=== PATIENT | male | born 1955 | race Caucasian/White ===

== ENCOUNTER 2017-11-20 17:14 | Emergency (ER) | payer MEDICARE ==
--- NOTE | 2017-11-20 18:02 | ER Document Report ---
ED General - General Chief Complaint: Other Stated Complaint: BLOOD CONCERN Time Seen by Provider: 11/20/17 17:52 Mode of Arrival: Ambulatory Information source: Patient, Relative Notes: 62-year-old male with a history of hypertension, CAD, aortic valve replacement in 2017 presents with request of an INR check. Patient is new to the area and has not been able to establish primary care as of yet. Patient is taking 3 mg grams of Coumadin daily. He states he is otherwise well. He denies any chest pain, shortness of breath, fever, chills, nausea, vomiting. Prior to moving he did have an elevated INR and was advised to cut back on his dosing. He does not know what his INR was. And now wants to make sure if he needs to stay on 3 mg or increase back to 4 mg. TRAVEL OUTSIDE OF THE [place] IN LAST 30 DAYS: No - HPI Quality of pain: No pain Associated symptoms: None Exacerbated by: Denies Relieved by: Denies - Related Data Allergies/Adverse Reactions: Unable to Assess Allergy (Unverified 11/20/17 17:31) Past Medical History - General Information source: Patient, Parent - Social History Smoking Status: Current Every Day Smoker Chew tobacco use (# tins/day): No Frequency of alcohol use: None Drug Abuse: None Lives with: Family Family History: CAD, Hypertension Patient has suicidal ideation: No Patient has homicidal ideation: No - Past Medical History Cardiac Medical History: Reports: Hx Hypertension Renal/ Medical History: Denies: Hx Peritoneal Dialysis Past Surgical History: Reports: Hx Cardiac Surgery Review of Systems - Review of Systems Notes: REVIEW OF SYSTEMS: CONSTITUTIONAL : Denies fever, chills, or sweats. Denies recent illness. Denies weight loss, recent hospitalizations. EENT: Denies visula changes, eye pain. Denies nasal or sinus congestion or discharge. Denies sore throat, oral lesions, difficulty swallowing. CARDIOVASCULAR: Denies chest pain. Denies palpitations or racing or irregular heart beat. Denies lower extremity edema. RESPIRATORY: Denies cough, cold, or chest congestion. Denies shortness of breath, difficulty breathing, or wheezing. GASTROINTESTINAL: Denies abdominal pain or distention. Denies nausea, vomiting , or diarrhea. Denies blood in vomitus, stools, or per rectum. Denies black, tarry stools. Denies constipation. GENITOURINARY: Denies difficulty urinating, painful urination, burning, frequency, blood in urine, or vaginal discharge. MUSCULOSKELETAL: Denies back or neck pain or stiffness. Denies joint pain or swelling. SKIN: Denies rash, lesions or sores. HEMATOLOGIC : Denies easy bruising or bleeding. LYMPHATIC: Denies swollen, enlarged glands. NEUROLOGICAL: Denies confusion or altered mental status. Denies passing out or loss of consciousness. Denies dizziness or lightheadedness. Denies headache. Denies weakness or paralysis or loss of use of either side. Denies problems with gait or speech. Denies sensory loss, numbness, or tingling. Denies seizures. PSYCHIATRIC: Denies anxiety or stress. Denies depression, suicidal ideation, or homicidal ideation. Physical Exam - Vital signs Vitals: Temp Pulse Resp BP Pulse Ox 97.7 F 63 16 137/70 H 100 11/20/17 17:26 11/20/17 17:26 11/20/17 17:26 11/20/17 17:26 11/20/17 17:26 Interpretation: Normal - Notes Notes: PHYSICAL EXAMINATION: GENERAL: Well-appearing, well-nourished and in no acute distress. HEAD: Atraumatic, normocephalic. EYES: Pupils equal round and reactive to light, extraocular movements intact, sclera anicteric, conjunctiva are normal. ENT: Nares patent, oropharynx clear without exudates. Moist mucous membranes. NECK: Normal range of motion, supple without lymphadenopathy LUNGS: Breath sounds clear to auscultation bilaterally and equal. No wheezes rales or rhonchi. HEART: Regular rate and rhythm without murmurs ABDOMEN: Soft, nontender, nondistended abdomen. No guarding, no rebound. No masses appreciated. Musculoskeletal: Normal range of motion, no pitting or edema. No cyanosis. NEUROLOGICAL: Cranial nerves grossly intact. Normal speech, normal gait. Normal sensory, motor exams PSYCH: Normal mood, normal affect. SKIN: Warm, Dry, normal turgor, no rashes or lesions noted. Course - Vital Signs Vital signs: Temp Pulse Resp BP Pulse Ox 97.7 F 64 16 122/64 96 11/20/17 17:26 11/20/17 18:47 11/20/17 18:47 11/20/17 18:47 11/20/17 18:47 - Laboratory Laboratory results interpreted by me: 11/20/17 17:56 PT 21.2 H APTT 37.1 H Discharge - Discharge Clinical Impression: Subtherapeutic international normalized ratio (INR) Disposition: HOME, SELF-CARE Additional Instructions: Your INR today is low it is 1.74 I would contact your doctor to see if he advises that you increase your Coumadin to 4 mg daily as you were on prior. Follow up with your physician tomorrow for further care or return to the ED IMMEDIATELY if symptoms worsen or new concerns occur. If you cannot afford to follow up with your primary care physician a list of low cost clinics have been provided at the end of your discharge papers as well. Forms: Elevated Blood Pressure
[2017-11-20 18:29] LABS: INTERNATIONAL RATION (INR) 1.74; PROTHROMBIN TIME 21.2 SEC (11.4-15.4)
[2017-11-20 18:30] LABS: PARTIAL THROMBOPLASTIN TIME 37.1 SEC (23.5-35.8)
[2017-11-20 18:53] VITALS: BP 122/64
== END 2017-11-20 18:52 | disposition home or self-care (01) ==
LOC: ER 17:14
DX: Z51.81 Encounter for therapeutic drug level monitoring (principal); Z79.01 Long term (current) use of anticoagulants; Z95.2 Presence of prosthetic heart valve; I25.10 Atherosclerotic heart disease of native coronary artery without angina pectoris; I10 Essential (primary) hypertension; F17.200 Nicotine dependence, unspecified, uncomplicated
CPT/HCPCS: 36415; 85610; 85730; 99283

== ENCOUNTER 2018-01-21 03:05 | Inpatient (IN) | payer BC, MEDICARE ==
[2018-01-21] MEDS ORDERED: ACETAMINOPHEN 325 MG TABLET PO PRN (03:53)
--- NOTE | 2018-01-21 05:32 | PDOC H&P ---
History of Present Illness Admission Date/PCP: 01/21/18 03:05 JOSH HERNÁNDEZ Patient complains of: Syncope History of Present Illness: REID FLEMING is a 62 year old male who is transferred/direct admission from the [facility]. 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 Patient tells me he was sitting at home when suddenly he passed out and became unresponsive for about 1 minute. He lives with his daughter who called the EMS, he was found with a blood pressure of 168/40 and his heart rate was 38 bpm, as per records he had a lack of radial pulse at that time. Patient had some dizziness before the event but denies any palpitations, chest pain, nausea, vomiting or any pain. Denies any similar symptoms in the past. Tells me he has history of atrial fibrillation and he is on Coumadin. In the [facility] the EKG shows atrial flutter 3:1, and at some point his BP was 88/50 with a heart rate of [address] Jain was a transfer attending from [facility]. This time patient is a stable, in no acute distress, asymptomatic. 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 2 years ago Denies: Hemorrhagic CVA Past Surgical History Past Surgical History: Reports: Appendectomy, Valve Replacement Social History Smoking Status: Current Every Day Smoker - He smokes about 2 cigarettes/day, he used to smoke 1 pack/day and decreased it 2 years ago after his a stroke Frequency of Alcohol Use: None - Patient used to be heavy drinker until 2 years ago Drugs: None Family History Family History: CAD, Hypertension Family History: Father of myocardial infarction when he was 56 years old. He does not know about his mother Parental Family History Reviewed: No Children Family History Reviewed: NA Sibling(s) Family History Reviewed.: NA Medication/Allergy Home Medications: Atorvastatin Calcium 40 mg PO DAILY 01/21/18 Metoprolol Tartrate 50 mg PO DAILY 01/21/18 Warfarin Sodium 3 mg PO ASDIR PRN 01/21/18 Allergies/Adverse Reactions: Unable to Assess Allergy (Unverified 11/20/17 17:31) Review of Systems Review of Systems: As outlined in the HPI, all others negative Physical Exam Vital Signs: Temp Pulse Resp BP Pulse Ox 98.4 F 41 L 20 129/72 H 100 01/21/18 03:13 01/21/18 03:13 01/21/18 03:13 01/21/18 03:13 01/21/18 03:13 Intake & Output 01/19/18 01/20/18 01/21/18 06:59 06:59 06:59 Weight 102.5 kg Additional comments: General appearance: Well-developed, well-nourished, alert and cooperative, and appears to be in no acute distress Head: Normocephalic Eyes: PEERL, EOMI, vision is grossly intact. Ears: External auditory canal and tympanic membranes clear, hearing grossly intact. Nose: No nasal discharge. Throat: Oral cavity and pharynx normal. No inflammation, swelling, exudate or lesions. Neck: Neck supple, nontender without lymphadenopathy, masses or thyromegaly. Cardiac: Normal S1 and S2. No S3, S4 or murmurs. Rhythm is regular. Thereis 1 + peripheral edema, no cyanosis or pallor. Extremities are warm and well perfused. Capillary refill is less than 2 seconds. No carotid bruits. Lungs: Clear to auscultation and percussion without rales, rhonchi, wheezing or diminished breath sounds. Not using accessory muscles. Abdomen: Positive bowel sounds. Soft. Nondistended, nontender. No guarding or rebound. No masses. No hepatosplenomegaly Extremities: No significant deformity or joint abnormality. Peripheral pulses intact. No varicosities. Neurological: Expressive aphasia. Right upper and lower extremity weakness 2/5 decreased sensation. Skin: Skin normal color, texture and turgor with no lesions or eruptions, warm and dry. Psychiatric: The mental examination is challenging as the patient is only able to answer a few questions. He seems to be alert and oriented x4 Results Laboratory Results: No laboratory our system, orders placed Assessment & Plan - Diagnosis (1) Atrial flutter Qualifiers: Atrial flutter type: unspecified Qualified Code(s): I48.92 - Unspecified atrial flutter Is this a current diagnosis for this admission?: Yes Plan: Patient with new onset atrial flutter 3:1. 4:1 and the last EKG done in our facility. Her rate is controlled now. Currently the patient has been having rapid and slow response, wondering if this can be tachybradycardy syndrome. Patient is on anticoagulation with Coumadin but we are sending a new INR. Cardiology with Dr. Hunter consulted continue telemetry monitoring, patient is on a stepdown unit. Cardiac markers x3. Echocardiogram. TSH requested. (2) Atrial fibrillation Qualifiers: Atrial fibrillation type: paroxysmal Qualified Code(s): I48.0 - Paroxysmal atrial fibrillation Is this a current diagnosis for this admission?: Yes Plan: Patient is on anticoagulation with Coumadin, patient is aware of this diagnosis. On beta-blockers at home. (3) History of CVA (cerebrovascular accident) Plan: She has history of CVA 2 years ago with right hemiparesis and expressive aphasia. On coumadin and statins. (4) History of [place] (myocardial infarction) Plan: Ostomy he has history of VA x2, apparently he does not have any stent placed. He has CABG not sure if he had also bypasses. He has a valve replacement, unknown if it is bioprosthetic or mechanical. 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 (5) Hypertension Is this a current diagnosis for this admission?: Yes Plan: Continue with metoprolol. On telemetry monitoring.
[2018-01-21 05:53] LABS: INTERNATIONAL RATION (INR) 1.89; PROTHROMBIN TIME 22.6 SEC (11.4-15.4)
[2018-01-21 06:11] LABS: ANION GAP 10 (5-19); BLOOD UREA NITROGEN 22 mg/dL (7-20); CALCIUM 8.8 mg/dL (8.4-10.2); CARBON DIOXIDE 22 mmol/L (22-30); CHLORIDE 112 mmol/L (98-107); GLUCOSE 109 mg/dL (75-110); POTASSIUM 4.2 mmol/L (3.6-5.0); SODIUM 143.5 mmol/L (137-145)
[2018-01-21 09:14] LABS: HEMATOCRIT 40.9 % (37.9-51.0); HEMOGLOBIN 13.9 g/dL (13.5-17.0); MEAN CORPUSCULAR HEMOGLOBIN 32.3 pg (27.0-33.4); MEAN CORPUSCULAR VOLUME 95 fl (80-97); PLATELET COUNT 157 10^3/uL (150-450); RED BLOOD COUNT 4.31 10^6/uL (4.35-5.55); RED CELL DISTRIBUTION WIDTH 13.9 % (11.5-14.0); WHITE BLOOD COUNT 7.9 10^3/uL (4.0-10.5)
--- NOTE | 2018-01-21 09:22 | EKG REPORT ---
SEVERITY:- ABNORMAL ECG - A-FLUTTER W/ PREDOM 4:1 AV BLOCK, A-RATE 254 NONSPECIFIC INTRAVENTRICULAR CONDUCTION DELAY : Confirmed by: Km Hunter 21-Jan-2018 09:21:01
[2018-01-21] MEDS: METOPROLOL TARTRATE 25 MG TABLET PO SCH (10:05)
[2018-01-21 10:36] LABS: PROTHROMBIN TIME 22.7 SEC (11.4-15.4)
[2018-01-21 11:36] LABS: APPEARANCE,URINE CLEAR; BILIRUBIN,URINE NEGATIVE (NEGATIVE); COLOR,URINE YELLOW; GLUCOSE, URINE NEGATIVE (NEGATIVE); KETONES,URINE NEGATIVE (NEGATIVE); LEUKOCYTE ESTERASE,URINE NEGATIVE (NEGATIVE); NITRITE,URINE NEGATIVE (NEGATIVE); PROTEIN,URINE NEGATIVE (NEGATIVE); URINE SPECIFIC GRAVITY 1.018
[2018-01-21] MEDS ORDERED: NORMAL SALINE 1000 ML 500 ML IV ONE (12:25)
[2018-01-21] MEDS: NORMAL SALINE 1000 ML 1,000 ML IV PRN ×2 (13:05→17:55)
--- NOTE | 2018-01-21 18:54 | XCELERA REPORT ---
[address] [address] Transthoracic Echocardiogram Report Name: REID FLEMING Age: 62 yrs Gender: Male : 1955 Patient Status: Inpatient Patient Location: [address] [place] [address] Study Date: 01/21/2018 08:29 AM Procedure: A complete two-dimensional transthoracic echocardiogram was performed (2D, M-mode, spectral and color flow Doppler). The study was technically difficult with many images being suboptimal in quality. Reason For Study: New A flutter Ordering Physician: VAUGHN SEN Performed By: Brooklyn Collier Interpretation Summary LV diastolic function could not be adequately assessed due to atrial fibrilation. The left ventricular ejection fraction is preserved. Consider additional methods to assess LVEF such as MUGA scan, CTA heart, cardiac MRI, BUCK, etc. if clinically indicated. The left ventricle is grossly normal size. There is borderline concentric left ventricular hypertrophy. Wall motion cannot be accurately commented on, but no definite regional wall motion abnormalities noted. Borderline right ventricular enlargement. Right ventricular function cannot be assessed due to poor image quality. The left atrium is moderately dilated. The right atrium is mild to moderately dilated. There is a trace amount of mitral regurgitation There is no mitral valve stenosis. There is a trace amount of aortic regurgitation There is no aortic valve stenosis There is a trace to mild amount of tricuspid regurgitation Tricuspid regurgitation jet envelope not well defined to measure RV systolic pressure accurately. The aortic root is not well visualized but is probably normal size. The inferior vena cava appeared normal and decreased > 50% with respiration (RAP 5-10 mmHg) There is no pericardial effusion. MMode/2D Measurements & Calculations RVDd: 3.2 cm LVIDd: 5.6 cm FS: 20.2 % Ao root diam: 2.5 cm IVSd: 0.87 cm LVIDs: 4.5 cm EDV(Teich): 155.5 mlAo root area: 5.1 cm2 LVPWd: 0.95 cmESV(Teich): 92.0 ml EF(Teich): 40.9 % LVOT diam: 2.1 cm LVOT area: 3.4 cm2 Doppler Measurements & Calculations MV E max amaya: MV dec slope: Ao V2 max: AI max amaya: 105.5 cm/sec 95.0 cm/sec 113.1 cm/sec MV A max amaya: 678.7 cm/sec2 Ao max PG: AI max P.0 cm/sec MV dec time: 3.6 mmHg 5.1 mmHg MV E/A: 3.5 0.16 sec AI dec slope: ALEXANDRA(V,D): 2.5 cm2 89.5 cm/sec2 AI P1/2t: 370.0 msec LV V1 max PG: PA V2 max: PI end-d amaya: TR max amaya: 2.1 mmHg 88.2 cm/sec 112.5 cm/sec 198.4 cm/sec LV V1 max: PA max P.1 mmHg TR max P.2 cm/sec 16.3 mmHg Left Ventricle The left ventricle is grossly normal size. There is borderline concentric left ventricular hypertrophy. The left ventricular ejection fraction is preserved. Consider additional methods to assess LVEF such as MUGA scan, CTA heart, cardiac MRI, BUCK, etc. if clinically indicated. LV diastolic function could not be adequately assessed due to atrial fibrilation. Wall motion cannot be accurately commented on, but no definite regional wall motion abnormalities noted. Right Ventricle Borderline right ventricular enlargement. Right ventricular function cannot be assessed due to poor image quality. Atria The right atrium is mild to moderately dilated. The left atrium is moderately dilated. Interarterial septum not well visualized and not well dopplered. Cannot comment on ASD/PFO presence. Mitral Valve The mitral valve is not well visualized. There is no mitral valve stenosis. There is a trace amount of mitral regurgitation. Aortic Valve The aortic valve is not well visualized secondary to technical limitations. There is no aortic valve stenosis. There is a trace amount of aortic regurgitation. Tricuspid Valve The tricuspid valve is not well visualized secondary to technical limitations. There is no tricuspid stenosis. There is a trace to mild amount of tricuspid regurgitation. Tricuspid regurgitation jet envelope not well defined to measure RV systolic pressure accurately. Pulmonic Valve The pulmonic valve is not well visualized. Great Vessels The aortic root is not well visualized but is probably normal size. The inferior vena cava appeared normal and decreased > 50% with respiration (RAP 5-10 mmHg). Effusions There is no pericardial effusion. : VAUGHN SEN > Km Hunter
--- NOTE | 2018-01-21 19:54 | PDOC CONSULTATION ---
Consultation Consult Date: 01/21/18 Attending physician:: VAUGHN SEN Consult reason:: Atrial flutter History of Present Illness Admission Date/PCP: 01/21/18 03:05 JOSH HERNÁNDEZ Patient complains of: Near syncope History of Present Illness: REID FLEMING is a 62 year old male who is transferred/direct admission from the [facility]. 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 Patient tells me he was sitting at home when suddenly he passed out and became unresponsive for about 1 minute. He lives with his daughter who called the EMS, he was found with a blood pressure of 168/40 and his heart rate was 38 bpm, as per records he had a lack of radial pulse at that time. Patient had some dizziness before the event but denies any palpitations, chest pain, nausea, vomiting or any pain. Denies any similar symptoms in the past. Tells me he has history of atrial fibrillation and he is on Coumadin. In the [facility] the EKG shows atrial flutter 3:1, and at some point his BP was 88/50 with a heart rate of [address] Jain was a transfer attending from [facility]. This time patient is a stable, in no acute distress, asymptomatic. 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 Patient was seen in the morning. Patient has significant aphasia from a prior stroke therefore could not confirm this history for me. Patient does have a history of valve replacement, however patient when asked whether he had bypass surgery, he said yes. 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 2 years ago Denies: Hemorrhagic CVA Past Surgical History Past Surgical History: Reports: Appendectomy, Valve Replacement Social History Information Source: Patient Smoking Status: Current Every Day Smoker - He smokes about 2 cigarettes/day, he used to smoke 1 pack/day and decreased it 2 years ago after his a stroke Frequency of Alcohol Use: None - Patient used to be heavy drinker until 2 years ago Drugs: None - Advance Directive Surrogate healthcare decision maker:: Patient's daughter is the surrogate decision-maker Family History Family History: CAD, Hypertension Parental Family History Reviewed: Yes Children Family History Reviewed: Yes Sibling(s) Family History Reviewed.: Yes Medication/Allergy Home Medications: Atorvastatin Calcium 40 mg PO DAILY 01/21/18 Metoprolol Tartrate 50 mg PO DAILY 01/21/18 Warfarin Sodium 3 mg PO ASDIR PRN 01/21/18 Allergies/Adverse Reactions: Unable to Assess Allergy (Unverified 11/20/17 17:31) Review of Systems ROS unobtainable: Other - Significant aphasia Physical Exam Vital Signs: Temp Pulse Resp BP Pulse Ox 98.2 F 49 L 16 106/50 L 96 01/21/18 15:45 01/21/18 15:45 01/21/18 15:45 01/21/18 15:45 01/21/18 16:22 Intake & Output 01/20/18 01/21/18 01/22/18 06:59 06:59 06:59 Intake Total 2143 Output Total 1125 Balance 1018 Weight 104.6 kg Exam: GENERAL: well-nourished and in no acute distress. Alert, orientation could not be checked because of aphasia. HEAD: Atraumatic, normocephalic. EYES: Pupils equal round and reactive to light, extraocular movements intact, sclera anicteric, conjunctiva are normal. ENT: TMs normal, nares patent, oropharynx clear without exudates. Moist mucous membranes. No oral ulcerations or bleeding gums noted NECK: supple without lymphadenopathy. Trachea is central. No cervical or axillary lymphadenopathy noted. Carotids are 2+, JVD WNL LUNGS: Respiration seems nonlabored, no significant accessory muscle action noted. Breath sounds clear to auscultation bilaterally and equal noted. No wheezes rales or rhonchi noted. No significant dullness noted on percussion. CHEST: Palpation of the chest wall shows no significant chest wall tenderness. HEART: [place] [employer], No PSH, 1/6 FADY aortic area, 1/6 mccloud systolic murmur mitral area, no rubs, no gallops. ABDOMEN: Soft, no significant tenderness appreciated, normoactive bowel sounds. No guarding, no rebound. No rigidity noted . No masses appreciated. EXTREMITIES: Pedal pulses are 1-2+, no calf tenderness noted. No clubbing or cyanosis. negative pedal edema noted NEUROLOGICAL: Focused neurological exam showed significant right-sided hemiparesis with aphasia. PSYCH: Normal mood, normal affect. Judgment and insight could not be checked SKIN: No significant ecchymosis, skin is noted to be warm. MUSCULOSKELETAL EXAM: No significant acute joint swelling noted. Results Laboratory Results: 01/21/18 05:01 01/21/18 05:01 01/21/18 01/21/18 01/21/18 05:01 05:01 05:01 WBC 7.9 RBC 4.31 L Hgb 13.9 Hct 40.9 MCV 95 MCH 32.3 MCHC 34.0 RDW 13.9 Plt Count 157 Sodium 143.5 Potassium 4.2 Chloride 112 H Carbon Dioxide 22 Anion Gap 10 BUN 22 H Creatinine 0.99 Est GFR ( Amer) > 60 Est GFR (Non-Af Amer) > 60 Glucose 109 Calcium 8.8 TSH 1.92 Urine Color Urine Appearance Urine pH Ur Specific [place] Urine Protein Urine Glucose (UA) Urine Ketones Urine Blood Urine Nitrite Ur Leukocyte Esterase Urine WBC (Auto) Urine RBC (Auto) 01/21/18 11:16 WBC RBC Hgb Hct MCV MCH MCHC RDW Plt Count Sodium Potassium Chloride Carbon Dioxide Anion Gap BUN Creatinine Est GFR ( Amer) Est GFR (Non-Af Amer) Glucose Calcium TSH Urine Color YELLOW Urine Appearance CLEAR Urine pH 6.0 Ur Specific [place] 1.018 Urine Protein NEGATIVE Urine Glucose (UA) NEGATIVE Urine Ketones NEGATIVE Urine Blood NEGATIVE Urine Nitrite NEGATIVE Ur Leukocyte Esterase NEGATIVE Urine WBC (Auto) 7 Urine RBC (Auto) 2 01/21/18 01/21/18 01/21/18 05:01 10:15 16:03 Troponin I < 0.012 < 0.012 < 0.012 EKG Comments: Atrial flutter with minor nonspecific T-wave inversion Assessment & Plan - Diagnosis (1) Syncope Qualifiers: Syncope type: unspecified Qualified Code(s): R55 - Syncope and collapse Is this a current diagnosis for this admission?: Yes (2) Atrial flutter Qualifiers: Atrial flutter type: unspecified Qualified Code(s): I48.92 - Unspecified atrial flutter Is this a current diagnosis for this admission?: Yes (3) History of CVA (cerebrovascular accident) Is this a current diagnosis for this admission?: Yes (4) History of [place] (myocardial infarction) Is this a current diagnosis for this admission?: Yes (5) Hypertension Qualifiers: Hypertension type: essential hypertension Qualified Code(s): I10 - Essential (primary) hypertension Is this a current diagnosis for this admission?: Yes (6) Obesity Qualifiers: Obesity type: unspecified obesity type Obesity classification: unspecified obesity classification Serious obesity comorbidity presence: unspecified whether serious comorbidity present Qualified Code(s): E66.9 - Obesity, unspecified Is this a current diagnosis for this admission?: Yes - Notes Notes: Syncope: Exact etiology not clear, could be tachybradycardia episodes, could be vasovagal. I could not find any documentation of bradycardia although it has been reported his heart rate was 38 at that time. Feel the best option would be to monitor his heart rhythm for the next several days and possibly also monitor this as an outpatient with a cardiac event monitor. Recommend obtaining orthostatic blood pressures if feasible. We will also recommend ruling out other causes of syncope especially would like to rule out any pulmonary embolism. May consider obtaining a cardiac CT angiogram tomorrow. Atrial flutter: Currently heart rate is well controlled. Continue beta-shruthi therapy. May consider further adjustment as needed depending on cardiac monitoring results. Continue chronic anticoagulation with Coumadin. History of coronary artery disease and prior myocardial infarction: Will obtain a 2D echocardiogram to look for any wall motion abnormalities. Hypertension: Blood pressure goal should be 135/85 or less in this patient. History of cerebrovascular accident: Chronic, currently stable. Patient will benefit from OT PT referral Obesity: Patient may in fact have underlying sleep apnea syndrome and will consider evaluating this as an outpatient. - Time Time Spent: 30 to 50 Minutes - CODE STATUS was discussed, patient remains full code. Surrogate decision-maker patient's daughter. Multiple medical problems were addressed. More than 50% of the time spent coordinating care, discussing management plans with involved caregivers. Management plans discussed with involved personnels. Medical decision making was of moderate to high complexity , patient's has multiple comorbidities. Medications reviewed and adjusted accordingly: Yes
[2018-01-21] MEDS: ATORVASTATIN CALCIUM 40 MG TABLET PO SCH (21:27)
--- NOTE | 2018-01-21 21:43 | Progress Note ---
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 Overnight events, H&P, and orders are reviewed; agree with current plan as set forth by the Manager Basketball. 1. Atrial flutter (new) 4:1 conduction: Troponins x3 are negative, TSH is normal. Echocardiogram is pending. Cardiology has been consulted; primary plan per cardiology's expert recommendations. 2. Atrial fibrillation (chronic): Monitor PT/INR, continue Coumadin and adjust as needed. Cardiology is consulted; appreciate their assistance. 3. Hx CVA: Continue statin. Supportive care. Should patient remain in facility , consider ST/PT/OT evaluations. 4. Hx of IL: Plan as above. 5. Hx Hypertension: Continue home dosed metoprolol 6. Hypotension: BUN minimally elevated; perhaps slightly dehydrated vs r/t atrial flutter. Will provide gentle IVF. 7. Syncope: Unclear etiology; dysrhythmia vs orthostatic hypotension vs TIA/CVA (will need to discuss with daughter to identify potential worsening hemiplegia; did have negative Head CT at [facility]).
[2018-01-21] MEDS ORDERED: WARFARIN SODIUM 3 MG TABLET PO SCH (22:00)
[2018-01-22 06:16] LABS: HEMATOCRIT 40.2 % (37.9-51.0); HEMOGLOBIN 13.8 g/dL (13.5-17.0); MEAN CORPUSCULAR HEMOGLOBIN 32.3 pg (27.0-33.4); MEAN CORPUSCULAR HGB CONC 34.3 g/dL (32.0-36.0); MEAN CORPUSCULAR VOLUME 94 fl (80-97); PLATELET COUNT 134 10^3/uL (150-450); RED BLOOD COUNT 4.26 10^6/uL (4.35-5.55); RED CELL DISTRIBUTION WIDTH 13.6 % (11.5-14.0); WHITE BLOOD COUNT 6.9 10^3/uL (4.0-10.5)
[2018-01-22 06:36] LABS: INTERNATIONAL RATION (INR) 1.67; PROTHROMBIN TIME 20.5 SEC (11.4-15.4)
[2018-01-22 06:39] LABS: ANION GAP 8 (5-19); BLOOD UREA NITROGEN 16 mg/dL (7-20); CALCIUM 8.5 mg/dL (8.4-10.2); CARBON DIOXIDE 23 mmol/L (22-30); CHLORIDE 112 mmol/L (98-107); D-DIMER 0.61 ug/mL (0.00-0.50); GLUCOSE 80 mg/dL (75-110); POTASSIUM 3.6 mmol/L (3.6-5.0); SODIUM 142.5 mmol/L (137-145)
[2018-01-22] MEDS ORDERED: WARFARIN SODIUM 3 MG TABLET PO SCH (07:49)
[2018-01-22] MEDS: NORMAL SALINE 1000 ML 1,000 ML IV PRN (07:49)
[2018-01-22] MEDS: METOPROLOL TARTRATE 25 MG TABLET PO SCH (09:52)
[2018-01-22] MEDS ORDERED: NORMAL SALINE 1000 ML 1,000 ML IV PRN (17:24)
--- NOTE | 2018-01-22 17:31 | PDOC PROGRESS REPORT ---
Subjective Progress Note for:: 01/22/18 Subjective:: The patient is a 62 year old male with a past medical history significant for atrial fibrillation, AL x 2, CABG with valve replacement, HTN, ischemic CVA with residual hemiparesis and expressive aphasia who was admitted as a transfer from [facility] overnight for report of syncope, hypotension, atrial flutter with both bradycardia and tachycardia reported. The patient is seen on morning rounds. He is found resting in bed comfortably on supplemental oxygen via nasal cannula. The patient reports that he does not use oxygen at home but is unable to tell me why he was placed on it overnight. He denies headache, dizziness, chest pain, palpitations, abdominal pain, nausea and vomiting. He reports good appetite this morning. He is able to convey that he does not feel that his residual stroke symptoms have changed or worsened in any way. He is agreeable to ST/OT/OT evaluations. He has no questions or concerns at this time. Reason For Visit: ARTIAL FLUTTER Physical Exam Vital Signs: Temp Pulse Resp BP Pulse Ox 98.5 F 62 16 131/54 H 97 01/22/18 16:11 01/22/18 16:11 01/22/18 11:52 01/22/18 16:11 01/22/18 16:11 Intake & Output 01/21/18 01/22/18 01/23/18 06:59 06:59 06:59 Intake Total 2993 Output Total 1125 Balance 1868 Weight 104.6 kg 105 kg General appearance: PRESENT: no acute distress, cooperative, well-developed, well-nourished, other - overweight Head exam: PRESENT: atraumatic, normocephalic Eye exam: PRESENT: conjunctiva pink, EOMI, PERRLA. ABSENT: scleral icterus Ear exam: PRESENT: normal external ear exam Mouth exam: PRESENT: moist, tongue midline Neck exam: ABSENT: carotid bruit, JVD, lymphadenopathy, thyromegaly Respiratory exam: PRESENT: clear to auscultation garrick, symmetrical, unlabored. ABSENT: rales, rhonchi, wheezes Cardiovascular exam: PRESENT: irregular rhythm, +S1, +S2. ABSENT: diastolic murmur, rubs, systolic murmur Pulses: PRESENT: normal dorsalis pedis pul Vascular exam: PRESENT: normal capillary refill GI/Abdominal exam: PRESENT: normal bowel sounds, soft. ABSENT: distended, guarding, mass, organolmegaly, rebound, tenderness Rectal exam: PRESENT: deferred Extremities exam: PRESENT: other - Right hemiparesis. ABSENT: calf tenderness, clubbing, pedal edema Neurological exam: PRESENT: alert, awake, oriented to person, oriented to place , oriented to time, oriented to situation, abnormal gait, other - Residual deficits from previous CVA are noted; right-sided hemiparesis, expressive aphasia. ABSENT: motor sensory deficit Psychiatric exam: PRESENT: appropriate affect, normal mood. ABSENT: homicidal ideation, suicidal ideation Skin exam: PRESENT: dry, intact, warm. ABSENT: cyanosis, rash Results Laboratory Results: 01/22/18 05:32 01/22/18 05:32 01/22/18 01/22/18 05:32 05:32 WBC 6.9 RBC 4.26 L Hgb 13.8 Hct 40.2 MCV 94 MCH 32.3 MCHC 34.3 RDW 13.6 Plt Count 134 L Sodium 142.5 Potassium 3.6 Chloride 112 H Carbon Dioxide 23 Anion Gap 8 BUN 16 Creatinine 0.97 Est GFR ( Amer) > 60 Est GFR (Non-Af Amer) > 60 Glucose 80 Calcium 8.5 Magnesium 2.1 01/21/18 01/21/18 01/21/18 05:01 10:15 16:03 Troponin I < 0.012 < 0.012 < 0.012 Assessment & Plan - Diagnosis (1) Atrial flutter Qualifiers: Atrial flutter type: unspecified Qualified Code(s): I48.92 - Unspecified atrial flutter Is this a current diagnosis for this admission?: Yes Plan: The patient is noted to be in atrial flutter with a 4-1 conduction; his heart rate does vary from 60 to to 129. Troponins were negative 3 TSH was normal. Echocardiogram revealed a preserved ejection fraction. Cardiology has been consulted; primary plan as per their expert recommendations. Monitoring daily PT/INR and continuing Coumadin therapy. Currently on metoprol 50 mg daily. (2) Atrial fibrillation Qualifiers: Atrial fibrillation type: paroxysmal Qualified Code(s): I48.0 - Paroxysmal atrial fibrillation Is this a current diagnosis for this admission?: Yes Plan: Chronic atrial fibrillation; currently in a flutter. Plan as above. (3) Hypertension Qualifiers: Hypertension type: essential hypertension Qualified Code(s): I10 - Essential (primary) hypertension Is this a current diagnosis for this admission?: Yes Plan: History of hypertension; currently normotensive. Continue home dose metoprolol. (4) Hypotension Is this a current diagnosis for this admission?: Yes Plan: Improved. Orthostatic vital signs are negative. Admission chemistry had a minimally elevated BUN; he was provided gentle IV fluids for consideration of slight dehydration. Hypotension may also be related to ventricular conduction delays in patient with new onset a flutter. We will continue gentle IV fluids; monitoring closely for fluid volume overload as the patient has an unclear cardiac history. (5) Syncope Qualifiers: Syncope type: unspecified Qualified Code(s): R55 - Syncope and collapse Is this a current diagnosis for this admission?: Yes Plan: Unclear etiology; dysrhythmia versus orthostatic hypotension versus TIA/CVA Orthostatic blood pressures are negative today following gentle IV fluid rehydration. Cardiology is currently managing atrial flutter; heart rate has been noted to be variable between 50s and 120s. Per [facility], the patient was as low as 30 at their facility. No indication that the patient has had a recurrent CVA; right-sided deficits are at his baseline function. Head CT (report in chart; obtained while at [facility]) was a negative for acute CVA. Fall precautions. (6) History of CVA (cerebrovascular accident) Is this a current diagnosis for this admission?: Yes Plan: History of CVA with residual right-sided hemiparesis and expressive aphasia. The patient is right-hand dominant. We will continue statin therapy. ST/PT/OT evaluations were completed today. (7) History of [place] (myocardial infarction) Is this a current diagnosis for this admission?: Yes Plan: Attempting to obtain previous cardiology records. Patient denies current cardiac chest pain. Troponins negative 3 Plan as above. (8) Obesity Qualifiers: Obesity type: due to excess calories Obesity classification: adult class 1 (BMI 30 - 34.9) Serious obesity comorbidity presence: unspecified whether serious comorbidity present Is this a current diagnosis for this admission?: Yes Plan: Dietary discretion is advised. Currently on a cardiac diet. - Time Time Spent with patient: 15-24 minutes Medications reviewed and adjusted accordingly: Yes Anticipated discharge: Home
--- NOTE | 2018-01-22 20:08 | PDOC PROGRESS REPORT ---
Subjective Progress Note for:: 01/22/18 Subjective:: Patient seems to be doing better with gradual improvement. Pt is denying any chest arm or neck discomfort. Patient denying any PND, orthopnea. Patient denied any sustained palpitations, dizziness, syncope, near syncope. Patient denying any fever chills. Patient denying any other significant discomfort. Patient is maintaining atrial flutter with predominantly 4-1 conduction. Review of systems: Rest review of systems negative. Medications: Medications have been reviewed. Reason For Visit: ARTIAL FLUTTER Physical Exam Vital Signs: Temp Pulse Resp BP Pulse Ox 98.5 F 62 16 131/54 H 97 01/22/18 16:11 01/22/18 16:11 01/22/18 11:52 01/22/18 16:11 01/22/18 16:11 Intake & Output 01/21/18 01/22/18 01/23/18 06:59 06:59 06:59 Intake Total 2993 1287 Output Total 1125 975 Balance 1868 312 Weight 104.6 kg 105 kg Results Laboratory Results: 01/22/18 05:32 01/22/18 05:32 01/22/18 01/22/18 05:32 05:32 WBC 6.9 RBC 4.26 L Hgb 13.8 Hct 40.2 MCV 94 MCH 32.3 MCHC 34.3 RDW 13.6 Plt Count 134 L Sodium 142.5 Potassium 3.6 Chloride 112 H Carbon Dioxide 23 Anion Gap 8 BUN 16 Creatinine 0.97 Est GFR ( Amer) > 60 Est GFR (Non-Af Amer) > 60 Glucose 80 Calcium 8.5 Magnesium 2.1 01/21/18 01/21/18 01/21/18 05:01 10:15 16:03 Troponin I < 0.012 < 0.012 < 0.012 Assessment & Plan - Diagnosis (1) Syncope Qualifiers: Syncope type: unspecified Qualified Code(s): R55 - Syncope and collapse Is this a current diagnosis for this admission?: Yes (2) Atrial flutter Qualifiers: Atrial flutter type: unspecified Qualified Code(s): I48.92 - Unspecified atrial flutter Is this a current diagnosis for this admission?: Yes (3) History of CVA (cerebrovascular accident) Is this a current diagnosis for this admission?: Yes (4) History of [place] (myocardial infarction) Is this a current diagnosis for this admission?: Yes (5) Hypertension Qualifiers: Hypertension type: essential hypertension Qualified Code(s): I10 - Essential (primary) hypertension Is this a current diagnosis for this admission?: Yes (6) Obesity Qualifiers: Obesity type: due to excess calories Obesity classification: adult class 1 (BMI 30 - 34.9) Serious obesity comorbidity presence: unspecified whether serious comorbidity present Is this a current diagnosis for this admission?: Yes - Notes Notes: Continue current management plans. Recommend electrophysiological consultation , can be arranged as an outpatient or as an inpatient depending on patient and family's preference. Syncope: Exact etiology not clear, could be tachybradycardia episodes, could be vasovagal. I could not find any documentation of bradycardia. Feel the best option would be to monitor his heart rhythm for the next several days and possibly also monitor this as an outpatient with a cardiac event monitor. Recommend obtaining orthostatic blood pressures if feasible. We will also recommend ruling out other causes of syncope especially would like to rule out any pulmonary embolism. Atrial flutter: Currently heart rate is well controlled. Continue beta-shruthi therapy. May consider further adjustment as needed depending on cardiac monitoring results. Continue chronic anticoagulation with Coumadin. History of coronary artery disease and prior myocardial infarction: 2D echo results were reviewed. Hypertension: Blood pressure goal should be 135/85 or less in this patient. History of cerebrovascular accident: Chronic, currently stable. Patient will benefit from OT PT referral Obesity: Patient may in fact have underlying sleep apnea syndrome and will consider evaluating this as an outpatient. Sleep disorder: Patient felt to have strong possibility of having underlying sleep apnea syndrome. It will be helpful to manage this condition to avoid future cardiac dysrhythmia and future strokes. - Time Time with patient: Greater than 35 minutes - CODE STATUS was discussed, patient remains full code. Surrogate decision-maker unchanged. Multiple medical problems were addressed. More than 50% of the time spent coordinating care, discussing management plans with involved caregivers. Management plans discussed with involved personnels. Medical decision making was of moderate to high complexity, patient's has multiple comorbidities.
[2018-01-22] MEDS: ATORVASTATIN CALCIUM 40 MG TABLET PO SCH (21:28)
[2018-01-22] MEDS ORDERED: WARFARIN SODIUM 4 MG TABLET PO SCH (22:00)
--- NOTE | 2018-01-22 23:05 | EKG REPORT ---
SEVERITY:- ABNORMAL ECG - A-FLUTTER W/ PREDOM 4:1 AV BLOCK, A-RATE 254 : Confirmed by: Km Hunter 22-Jan-2018 23:03:59
[2018-01-23 06:25] LABS: INTERNATIONAL RATION (INR) 1.56; PROTHROMBIN TIME 19.5 SEC (11.4-15.4)
[2018-01-23] MEDS ORDERED: WARFARIN SODIUM 2 MG TABLET PO ONE (09:00)
[2018-01-23] MEDS: METOPROLOL TARTRATE 25 MG TABLET PO SCH (09:13)
[2018-01-23 12:43] LABS: APPEARANCE,URINE CLEAR; BILIRUBIN,URINE NEGATIVE (NEGATIVE); COLOR,URINE YELLOW; GLUCOSE, URINE NEGATIVE (NEGATIVE); KETONES,URINE NEGATIVE (NEGATIVE); LEUKOCYTE ESTERASE,URINE NEGATIVE (NEGATIVE); NITRITE,URINE NEGATIVE (NEGATIVE); PROTEIN,URINE NEGATIVE (NEGATIVE); URINE SPECIFIC GRAVITY 1.011
[2018-01-23 15:37] VITALS: BP 122/72
--- NOTE | 2018-01-23 19:40 | PDOC PROGRESS REPORT ---
Subjective Progress Note for:: 01/23/18 Subjective:: Patient was seen on morning rounds. He requested to be discharged home. He did not want to be transferred out. Patient should have a appointment with human projectile. Patient will also benefit from an appointment with me for follow-up of sleep apnea question.. Pt is denying any chest arm or neck discomfort. Patient denying any PND, orthopnea. Patient denied any sustained palpitations, dizziness, syncope, near syncope. Patient denying any fever chills. Patient denying any other significant discomfort. Patient is maintaining atrial flutter with predominantly 4-1 conduction. Review of systems: Rest review of systems negative. Medications: Medications have been reviewed. Reason For Visit: ARTIAL FLUTTER Physical Exam Vital Signs: Temp Pulse Resp BP Pulse Ox 98.6 F 64 16 122/72 94 01/23/18 15:15 01/23/18 15:15 01/23/18 15:15 01/23/18 15:15 01/23/18 15:15 Intake & Output 01/22/18 01/23/18 01/24/18 06:59 06:59 06:59 Intake Total 2993 1637 Output Total 1125 1675 750 Balance 1868 -38 -750 Weight 105 kg 102.3 kg Exam: GENERAL: well-nourished and in no acute distress. Alert, patient is oriented 3 based on direct questioning. HEAD: Atraumatic, normocephalic. EYES: Pupils equal round and reactive to light, extraocular movements intact, sclera anicteric, conjunctiva are normal. ENT: TMs normal, nares patent, oropharynx clear without exudates. Moist mucous membranes. No oral ulcerations or bleeding gums noted NECK: supple without lymphadenopathy. Trachea is central. No cervical or axillary lymphadenopathy noted. Carotids are 2+, JVD WNL LUNGS: Respiration seems nonlabored, no significant accessory muscle action noted. Breath sounds clear to auscultation bilaterally and equal noted. No wheezes rales or rhonchi noted. No significant dullness noted on percussion. CHEST: Palpation of the chest wall shows no significant chest wall tenderness. HEART: Page [employer], No PSH, 1/6 FADY aortic area, 1/6 mccloud systolic murmur mitral area, no rubs, no gallops. ABDOMEN: Soft, no significant tenderness appreciated, normoactive bowel sounds. No guarding, no rebound. No rigidity noted . No masses appreciated. EXTREMITIES: Pedal pulses are 1-2+, no calf tenderness noted. No clubbing or cyanosis. negative pedal edema noted NEUROLOGICAL: Focused neurological exam showed significant right-sided hemiparesis with aphasia. Patient claims that he is able to walk with a walker. Patient has right-sided weakness. PSYCH: Normal mood, normal affect. Judgment and insight seems to be WNL based on direct questioning. SKIN: No significant ecchymosis, skin is noted to be warm. MUSCULOSKELETAL EXAM: No significant acute joint swelling noted. Results Laboratory Results: 01/22/18 05:32 01/22/18 05:32 01/23/18 12:20 Urine Color YELLOW Urine Appearance CLEAR Urine pH 7.0 Ur Specific [place] 1.011 Urine Protein NEGATIVE Urine Glucose (UA) NEGATIVE Urine Ketones NEGATIVE Urine Blood NEGATIVE Urine Nitrite NEGATIVE Ur Leukocyte Esterase NEGATIVE Urine WBC (Auto) 1 Urine RBC (Auto) 1 01/21/18 01/21/18 01/21/18 05:01 10:15 16:03 Troponin I < 0.012 < 0.012 < 0.012 Assessment & Plan - Diagnosis (1) Syncope Qualifiers: Syncope type: unspecified Qualified Code(s): R55 - Syncope and collapse Is this a current diagnosis for this admission?: Yes (2) Atrial flutter Qualifiers: Atrial flutter type: unspecified Qualified Code(s): I48.92 - Unspecified atrial flutter Is this a current diagnosis for this admission?: Yes (3) History of CVA (cerebrovascular accident) Is this a current diagnosis for this admission?: Yes (4) History of [place] (myocardial infarction) Is this a current diagnosis for this admission?: Yes (5) Hypertension Qualifiers: Hypertension type: essential hypertension Qualified Code(s): I10 - Essential (primary) hypertension Is this a current diagnosis for this admission?: Yes (6) Obesity Qualifiers: Obesity type: due to excess calories Obesity classification: adult class 1 (BMI 30 - 34.9) Serious obesity comorbidity presence: unspecified whether serious comorbidity present Is this a current diagnosis for this admission?: Yes - Notes Notes: Patient is requesting being discharged today. Patient to have a follow-up appointment with human projectile for further evaluation regarding ablation/ plus minus pacemaker placement. Patient should have a follow-up appointment with me for evaluation of sleep apnea and for cardiology follow-up care. Syncope: Exact etiology not clear, could be tachybradycardia episodes, could be vasovagal. I could not find any documentation of bradycardia. Feel the best option would be to monitor his heart rhythm for the next several days and possibly also monitor this as an outpatient with a cardiac event monitor. Recommend obtaining orthostatic blood pressures if feasible. We will also recommend ruling out other causes of syncope especially would like to rule out any pulmonary embolism. Atrial flutter: Currently heart rate is well controlled. Continue beta-shruthi therapy. May consider further adjustment as needed depending on cardiac monitoring results. Continue chronic anticoagulation with Coumadin. History of coronary artery disease and prior myocardial infarction: 2D echo results were reviewed. Hypertension: Blood pressure goal should be 135/85 or less in this patient. History of cerebrovascular accident: Chronic, currently stable. Patient will benefit from OT PT referral Obesity: Patient may in fact have underlying sleep apnea syndrome and will consider evaluating this as an outpatient. Sleep disorder: Patient felt to have strong possibility of having underlying sleep apnea syndrome. It will be helpful to manage this condition to avoid future cardiac dysrhythmia and future strokes. - Time Time with patient: 15-25 minutes - CODE STATUS was discussed, patient remains full code. Surrogate decision-maker unchanged. Multiple medical problems were addressed. More than 50% of the time spent coordinating care, discussing management plans with involved caregivers. Management plans discussed with involved personnels. Medical decision making was of moderate to high complexity , patient's has multiple comorbidities. Medications reviewed and adjusted accordingly: Yes
[2018-01-23] MEDS ORDERED: WARFARIN SODIUM 2 MG TABLET PO SCH (22:00)
--- NOTE | 2018-01-23 22:12 | EKG REPORT ---
SEVERITY:- ABNORMAL ECG - ATRIAL FLUTTER, A-RATE 250 ST DEPRESSION, CONSIDER ISCHEMIA, ANT-LAT LDS : Confirmed by: Km Hunter 23-Jan-2018 22:11:28
--- NOTE | 2018-01-24 21:58 | PDOC DISCHARGE SUMMARY ---
General - Admit/Disc Date/PCP Admission Date/Primary Care Provider: 01/21/18 03:05 JOSH HERNÁNDEZ Discharge Date: 01/23/18 - Discharge Diagnosis (1) Atrial flutter Is this a current diagnosis for this admission?: Yes Summary: The patient is noted to be in atrial flutter with a 4-1 conduction; his heart rate does vary from 60 to to 129. Troponins were negative 3 TSH was normal. Echocardiogram revealed a preserved ejection fraction. Cardiology was consulted; recommended discharge with outpatient follow up vs transfer to tertiary care center for EP study. These options were discussed in detail with both the patient and his daughter, the primary health care analyst. The patient elected to be discharged to home with later follow up. (2) Atrial fibrillation Is this a current diagnosis for this admission?: Yes Summary: Chronic a. fib; now in atrial flutter as above. (3) Hypertension Is this a current diagnosis for this admission?: Yes (4) Hypotension Is this a current diagnosis for this admission?: Yes Summary: The patient was initially noted to have HYPOtension with lowest blood pressure of 80/s40s by EMS personnel. Admission chemistry had a minimally elevated BUN; he was provided gentle IV fluids for consideration of slight dehydration. Hypotension may also be related to ventricular conduction delays in patient with new onset a flutter. Orthostatic vital signs were normal and pt is now normotensive. (5) Syncope Is this a current diagnosis for this admission?: Yes Summary: Likely secondary to transient hypotension that occurred at the onset of his a. flutter. Patient was provided IV fluid bolus by EMS and [facility] providers followed by gentle maintanence IV fluids. Orthostatic blood pressures are normal. Cardiology is currently managing atrial flutter; heart rate has been noted to be variable between 50s and 120s. Per [facility], the patient was as low as 30 at their facility. No indication that the patient has had a recurrent CVA; right-sided deficits are at his baseline function. Head CT (report in chart; obtained while at [facility]) was a negative for acute CVA. 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 The patient is right-hand dominant. He was continued on Coumadin and statin therapy. ST/PT/OT evaluations were conducted; no recommendations for outpatient followup. Cleared for a regular diet with thin liquids. (7) History of AR (myocardial infarction) Is this a current diagnosis for this admission?: Yes Summary: Patient denies current cardiac chest pain. Troponins negative 3 (8) Obesity Is this a current diagnosis for this admission?: Yes (9) Anticoagulated on Coumadin Is this a current diagnosis for this admission?: Yes Summary: PT/INR was subtherapeutic on admission (1.89); repeat INR the following morning was unchanged (1.90). His home dose of Coumadin 3 mg nightly was continued. His INR trended downward and on 01/23/18, his INR was 1.56. He was provided a 2 mg booster dose and his maintanence dose raised to 4 mg nightly. The patient was carefully instructed on the importance of PCP follow up within 5 -7 days for INR monitoring. - Additional Information Discharge Diet: Cardiac Discharge Activity: Activity As Tolerated, Balance Activity w/Rest Prescriptions: Warfarin Sodium [Coumadin 4 mg Tablet] 4 mg PO QHS #10 tablet Home Medications: Atorvastatin Calcium 40 mg PO DAILY 01/21/18 Metoprolol Tartrate 50 mg PO DAILY 01/21/18 Acetaminophen [Tylenol 325 mg Tablet] 650 mg PO Q4HP PRN tablet 01/23/18 Warfarin Sodium [Coumadin 4 mg Tablet] 4 mg PO QHS #10 tablet 01/23/18 History of Present Illness History of Present Illness: Per H&P by Dr. Marshall: REID FLEMING is a 62 year old male who is transferred/ direct admission from the [facility]. 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 Patient tells me he was sitting at home when suddenly he passed out and became unresponsive for about 1 minute. He lives with his daughter who called the EMS, he was found with a blood pressure of 168/40 and his heart rate was 38 bpm, as per records he had a lack of radial pulse at that time. Patient had some dizziness before the event but denies any palpitations, chest pain, nausea, vomiting or any pain. Denies any similar symptoms in the past. Tells me he has history of atrial fibrillation and he is on Coumadin. In the [facility] the EKG shows atrial flutter 3:1, and at some point his BP was 88/50 with a heart rate of [address] Jain was a transfer attending from [facility]. This time patient is a stable, in no acute distress, asymptomatic. She moved from [place] 2 months ago and his hoistman is located there. Physical Exam Vital Signs: Temp Pulse Resp BP Pulse Ox 98.6 F 64 16 122/72 94 01/23/18 15:15 01/23/18 15:15 01/23/18 15:15 01/23/18 15:15 01/23/18 15:15 Intake & Output 01/23/18 01/24/18 01/25/18 06:59 06:59 06:59 Intake Total 1637 Output Total 1675 750 Balance -38 -750 Weight 102.3 kg General appearance: PRESENT: no acute distress, well-developed, well-nourished Head exam: PRESENT: atraumatic, normocephalic Eye exam: PRESENT: conjunctiva pink, EOMI, PERRLA. ABSENT: scleral icterus Ear exam: PRESENT: normal external ear exam Mouth exam: PRESENT: moist, tongue midline Neck exam: ABSENT: carotid bruit, JVD, lymphadenopathy, thyromegaly Respiratory exam: PRESENT: clear to auscultation garrick. ABSENT: rales, rhonchi, wheezes Cardiovascular exam: PRESENT: irregular rhythm, +S1, +S2. ABSENT: diastolic murmur, rubs, systolic murmur Pulses: PRESENT: normal dorsalis pedis pul Vascular exam: PRESENT: normal capillary refill GI/Abdominal exam: PRESENT: normal bowel sounds, soft. ABSENT: distended, guarding, mass, organolmegaly, rebound, tenderness Rectal exam: PRESENT: deferred Extremities exam: PRESENT: other - R hemiparesis. ABSENT: calf tenderness, clubbing, pedal edema Neurological exam: PRESENT: alert, awake, oriented to person, oriented to place , oriented to time, oriented to situation, aphasic - Expressive aphasia, at baseline. ABSENT: motor sensory deficit Psychiatric exam: PRESENT: appropriate affect, normal mood. ABSENT: homicidal ideation, suicidal ideation Skin exam: PRESENT: dry, intact, warm. ABSENT: cyanosis, rash Results Laboratory Results: 01/22/18 05:32 01/22/18 05:32 01/21/18 01/21/18 01/21/18 05:01 10:15 16:03 Troponin I < 0.012 < 0.012 < 0.012 Qualifiers - * PATIENT BEING DISCHARGED WITH ANY OF THE FOLLOWING DIAGNOSIS: No Plan Discharge Plan: Discharge to home in the care of family members. The patient is instructed to follow up with his primary care provider within 1 week. The aptient's Coumadin dose was adjusted while admitted and he will require repeat INR no later than 7 days from discharge. The patient is instructed to follow up with his [facility] within 1 week. He is referred to Dr Chambers, [facility], for EP study. Pt is advised to return to the emergency department for any concerning symptoms. Time Spent: Less than 30 Minutes
== END 2018-01-23 17:30 | disposition home or self-care (01) | DRG 309 ==
LOC: 3S 03:05
PROVIDERS: ADMIT Internal Medicine; ATTEND Internal Medicine
DX: I48.92 Unspecified atrial flutter (principal); I69.351 Hemiplegia and hemiparesis following cerebral infarction affecting right dominant side; I48.2 Chronic atrial fibrillation; I10 Essential (primary) hypertension; I95.9 Hypotension, unspecified; I25.2 Old myocardial infarction; I69.320 Aphasia following cerebral infarction; E66.09 Other obesity due to excess calories; R79.1 Abnormal coagulation profile; I25.10 Atherosclerotic heart disease of native coronary artery without angina pectoris; F17.210 Nicotine dependence, cigarettes, uncomplicated; Z68.32 Body mass index [BMI] 32.0-32.9, adult; Z79.01 Long term (current) use of anticoagulants; Z95.1 Presence of aortocoronary bypass graft; Z95.2 Presence of prosthetic heart valve; Z82.49 Family history of ischemic heart disease and other diseases of the circulatory system
CPT/HCPCS: 36415; 80048; 81001; 83735; 84443; 84484; 85027; 85379; 85610; 93005; 93010; 93306; G8996-GN; G8997-GN; G8998-GN; J3490; J7030

== ENCOUNTER → 2018-02-06 | Outpatient (CLI) | payer MEDICARE, BC ==
[2018-02-06 17:31] LABS: PROTHROMBIN TIME 28.2 SEC (11.4-15.4)
== END ==
LOC: LAB 17:05
PROVIDERS: ATTEND Family Medicine
DX: I35.9 Nonrheumatic aortic valve disorder, unspecified (principal); Z79.01 Long term (current) use of anticoagulants
CPT/HCPCS: 36415; 85610